=== PATIENT | female | born 1950 | race Caucasian/White ===

== ENCOUNTER 2024-02-02 17:53 | Emergency (ER) | payer MEDICARE, SELFPAY ==
[2024-02-02 18:03] VITALS: BP 141/64; PULSE 73; RESP 14; TEMP 36.6; O2SAT 97; BMI 27.4
--- NOTE | 2024-02-02 18:10 | ECG_ITS ---
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 Measurements Intervals [place] Rate: 65 P: 66 [place]: 155 QRS: 87 QRSD: 85 T: 63 QT: 376 QTc: 393 Interpretive Statements SINUS RHYTHM POSSIBLE LEFT ATRIAL ENLARGEMENT [-0.1mV P-WAVE IN V1/V2] NONSPECIFIC T-WAVE ABNORMALITY No previous ECG available for comparison Electronically Signed On 02-02-2024 21:09:09 CDT by Cheko Araya M.D. [id number]
--- NOTE | 2024-02-02 18:35 | CTR_ITS ---
PROCEDURE INFORMATION: Exam: CT Maxillofacial Without Contrast Exam date and time: 02/02/2024 7:33 PM Age: 73 years old Clinical indication: Injury or trauma; Fall; Blunt trauma (contusions or hematomas); Forehead and nose; Patient HX: Patient fell face first onto floor. Hematoma to frontal and contusion to nasion. C/O BRAVO with dizziness and neck pain. TECHNIQUE: Imaging protocol: Computed tomography of the face without contrast. Radiation optimization: All CT scans at this facility use at least one of these dose optimization techniques: automated exposure control; mA and/or kV adjustment per patient size (includes targeted exams where dose is matched to clinical indication); or iterative reconstruction. COMPARISON: CT head wo con* [id number] 02/02/2024 7:33 PM RADIATION DOSE METRICS: Total DLP (mGy-cm): 577.7 FINDINGS: Orbital cavities: Orbits are normal. Globes are unremarkable. Paranasal sinuses: Left maxillary sinus mucosal thickening without air-fluid levels. Nasal cavity: Nasal turbinectomy surgical changes. Bones: Mild comminution bilateral nasal bones. Mild displacement bilaterally. There is some depression of the anterior superior nasal bones. Soft tissues: Frontal scalp hematoma. CT/CT facial bones wo con* [id number] IMPRESSION: Bilateral nasal bone fracture deformities.
--- NOTE | 2024-02-02 18:35 | CTR_ITS ---
PROCEDURE INFORMATION: Exam: CT Cervical Spine Without Contrast Exam date and time: 02/02/2024 7:33 PM Age: 73 years old Clinical indication: Injury or trauma; Fall; Blunt trauma; Prior surgery; Surgery date: 6+ months; Surgery type: Cervical fusion TECHNIQUE: Imaging protocol: Computed tomography of the cervical spine without contrast. Radiation optimization: All CT scans at this facility use at least one of these dose optimization techniques: automated exposure control; mA and/or kV adjustment per patient size (includes targeted exams where dose is matched to clinical indication); or iterative reconstruction. COMPARISON: CT facial bones wo con* [id number] 02/02/2024 7:33 PM RADIATION DOSE METRICS: Total DLP (mGy-cm): 649.6 FINDINGS: Bones: Negative for acute cervical spine fracture.The cervical spine demonstrates marked degenerative changes at multiple levels. C4-C5 anterolisthesis measures 3.8 mm. C6-C7 anterolisthesis measures 4 mm. Osseous ankylosis of C3-C4. ACDF of C5-C6. Lungs: Mild mosaic attenuation. Soft tissues: Unremarkable. CT/CT cervical spin wo con* [id number] IMPRESSION: Negative for acute cervical spine fracture.
--- NOTE | 2024-02-02 18:35 | CTR_ITS ---
PROCEDURE INFORMATION: Exam: CT Head Without Contrast Exam date and time: 02/02/2024 7:33 PM Age: 73 years old Clinical indication: Injury or trauma; Fall; Blunt trauma (contusions or hematomas); Patient HX: Patient fell face first onto floor. Hematoma to frontal and contusion to nasion. C/O BRAVO with dizziness and neck pain. TECHNIQUE: Imaging protocol: Computed tomography of the head without contrast. Radiation optimization: All CT scans at this facility use at least one of these dose optimization techniques: automated exposure control; mA and/or kV adjustment per patient size (includes targeted exams where dose is matched to clinical indication); or iterative reconstruction. COMPARISON: CT facial bones wo con* [id number] 02/02/2024 7:33 PM RADIATION DOSE METRICS: Total DLP (mGy-cm): 1189.2 FINDINGS: Brain: There is mild cerebral atrophy. There is mild diffuse heterogeneity of the white matter attenuation, consistent with chronic white matter ischemic changes. Negative for intracranial hemorrhage. Negative for mass effect on the brain. Negative for midline shift of brain. Cerebral ventricles: No ventriculomegaly. Paranasal sinuses: Visualized sinuses are unremarkable. No fluid levels. Mastoid air cells: Visualized mastoid air cells are well aerated. Bones: Both nasal bones are mildly-comminuted with mild displacement on the left of unknown chronicity. No acute calvarial fracture. Soft tissues: Frontal scalp hematoma. CT/CT head wo con* [id number] IMPRESSION: 1. Negative for acute intracranial injury. 2. Age indeterminate bilateral nasal bone fracture deformities. Correlate with exam.
[2024-02-02] MEDS: meclizine 25 mg tablet 50 MG PO (18:43)
--- NOTE | 2024-02-02 18:43 | XRR_ITS ---
PROCEDURE INFORMATION: Exam: XR Right Wrist Exam date and time: 02/02/2024 6:54 PM Age: 73 years old Clinical indication: Pain; Wrist; Right; Additional info: Fall, RT wrist pain TECHNIQUE: Imaging protocol: Radiologic exam of the right wrist. Views: 3 or more views. COMPARISON: No relevant prior studies available. FINDINGS: Bones/joints: Bones are moderately demineralized. Alignment is intact. No evidence of acute fracture or dislocation. Moderate scattered degenerative change. Soft tissues: The soft tissues are within normal limits. XR/XR wrist RT min 3V* [id number] IMPRESSION: No evidence of acute fracture or dislocation.
--- NOTE | 2024-02-02 18:43 | XRR_ITS ---
PROCEDURE INFORMATION: Exam: XR Left Wrist Exam date and time: 02/02/2024 7:01 PM Age: 73 years old Clinical indication: Pain; Wrist; Left; Additional info: Fall, lt wrist pain TECHNIQUE: Imaging protocol: Radiologic exam of the left wrist. Views: 3 or more views. COMPARISON: No relevant prior studies available. FINDINGS: Bones/joints: Bones are moderately demineralized. Alignment is intact. No evidence of acute fracture or dislocation. Moderate scattered degenerative change. Soft tissues: The soft tissues are within normal limits. XR/XR wrist LT min 3V* [id number] IMPRESSION: No evidence of acute fracture or dislocation.
--- NOTE | 2024-02-02 18:45 | ED_ITS ---
HPI - Fall 2 General: Chief Complaint: Fall Stated Complaint: Fall--pain in head, hands, wrists Time Seen by Provider: 02/02/24 18:36 Source: patient Mode of arrival: ambulatory Limitations: no limitations History of Present Illness: 73-year-old female states she had a fall today. She does not really remember the events and woke up on the ground with head neck face pain she does have facial and head bruising she has some slight pain in bilateral wrists. She states she has had some vertigo along with feeling unbalanced since coming to [place] from [place] 5 days ago. Denies any previous fall she denies any chest pain or shortness of breath Associated symptoms-after fall: Reports headache(s) and neck pain; Denies abdominal pain or chest pain Review of Systems 2 Const: Denies: fever(s), chills, body aches or change in appetite Eyes: Denies: blurry vision or eye discomfort ENMT: Denies: throat pain or dental pain Card: Denies: chest pain Resp: Denies: dyspnea GI: Denies: abdominal pain, nausea, vomiting or diarrhea Musc: Reports: neck pain; Denies: back pain Skin/Breast: Denies: rash Neuro: Reports: headache(s) and dizziness Physical Exam 2 Const: COMMON NORMALS: no acute distress, patient oriented x3 and healthy appearing HENMT: OTHER: Bruising noted to forehead along with bridge of the nose Eye: COMMON NORMALS: Equal, round and reactive pupils present and EOMs intact bilaterally PUPIL: Yes Equal, round and reactive pupils present OTHER: nystagmus is noted when looking to the right she states she has had nystagmus since the 70s Neck/C-Spine: OTHER: Slight paraspinal tenderness along C-spine Chest: COMMONS NORMALS: normal inspection of the chest and normal palpation of entire chest wall Resp: COMMON NORMALS: normal respiratory effort, No retractions, No use of accessory muscles and clear to auscultation bilaterally AUSCULTATION: clear to auscultation bilaterally Cardio: COMMON NORMALS: regular rate, regular rhythm and No murmurs present (Cardio) RATE: regular rate RHYTHM: regular rhythm GI: COMMON NORMALS: Normal to inspection, nondistended, normoactive bowel sounds present, Soft to palpation, non-tender and no masses PALPATION: Yes Soft to palpation Extremity: COMMON NORMALS: normal to inspection and full ROM Neuro: COMMON NORMALS: patient oriented x3, moves all extremities and no focal motor deficits Psych: COMMON NORMALS: mental status grossly normal, Normal thought process present and cooperative THOUGHT PROCESS: Normal thought process present Skin: COMMON NORMALS: no rashes or lesions noted and no wounds GENERAL SKIN EXAM: no rashes or lesions noted Course 2 Vital Signs: Vital signs: Vital Signs Temperature 97.8 F 02/02/24 18:03 Pulse Rate 67 02/02/24 21:50 Respiratory Rate 16 02/02/24 20:59 Blood Pressure 163/80 02/02/24 21:50 Pulse Oximetry 96 02/02/24 21:50 Oxygen Delivery Me thod Room Air 02/02/24 20:59 MDM - Fall Medical Decision Making Patient presents here with fall she does have a nasal fracture she does have some vertigo but she has had vertigo for quite some time and is not new no signs of posterior stroke it is improved here she is to follow-up with her ENT at home in [place] she leaves tomorrow return if worsening Medical Records I reviewed the patient's medical records. Lab Data I reviewed the patient's lab results. 02/02/24 19:52 02/02/24 19:52 Radiology Impressions Cervical Spine CT 02/02/24 18:35 IMPRESSION: Negative for acute cervical spine fracture. Face CT 02/02/24 18:35 IMPRESSION: Bilateral nasal bone fracture deformities. Head CT 02/02/24 18:35 IMPRESSION: 1. Negative for acute intracranial injury. 2. Age indeterminate bilateral nasal bone fracture deformities. Correlate with exam. Wrist X-Ray 02/02/24 18:43 IMPRESSION: No evidence of acute fracture or dislocation. Laboratory Results WBC 10.84 10^3/uL (3.29-11.43) 02/02/24 19:52 RBC 4.36 10^6/uL (3.85-5.65) 02/02/24 19:52 Hgb 13.70 g/dL (11.27-16.99) 02/02/24 19:52 Hct 41.5 % (36-47) 02/02/24 19:52 MCV 95.2 fl (85-98) 02/02/24 19:52 MCH 31.4 pg (27-33) 02/02/24 19:52 MCHC 33.0 g/dL (30-55) 02/02/24 19:52 RDW 14.1 % (12.1-15.1) 02/02/24 19:52 Plt Count 311 10^3/cmm (157-399) 02/02/24 19:52 MPV 8.9 fL (7.4-10.4) 02/02/24 19:52 Neut % (Auto) 67.8 % 02/02/24 19:52 Lymph % (Auto) 22.8 % 02/02/24 19:52 Dewitt % (Auto) 7.7 % 02/02/24 19:52 Eos % (Auto) 0.6 % 02/02/24 19:52 Baso % (Auto) 0.6 % 02/02/24 19:52 Neut # (Auto) 7.36 10^3/uL (1.8-7.7) 02/02/24 19:52 Lymph # (Auto) 2.5 10^3/uL (0.8-4.8) 02/02/24 19:52 Dewitt # (Auto) 0.8 10^3/uL (0.2-0.9) 02/02/24 19:52 Eos # (Auto) 0.1 10^3/uL (0.0-0.8) 02/02/24 19:52 Baso # (Auto) 0.1 10^3/uL (0.0-0.1) 02/02/24 19:52 Nucleated RBC % (auto) 0 % 02/02/24 19:52 Nucleated RBCs # 0.0 /100WBC 02/02/24 19:52 Sodium 132 mmol/L (136-145) L 02/02/24 19:52 Potassium 4.2 mmol/L (3.5-5.1) 02/02/24 19:52 Chloride 96 mmol/L (98-107) L 02/02/24 19:52 Carbon Dioxide 25 mmol/L (22-29) 02/02/24 19:52 Anion Gap 15.2 (5-19) 02/02/24 19:52 BUN 19 mg/dL (8-23) 02/02/24 19:52 Creatinine 0.8 mg/dL (0.5-0.9) 02/02/24 19:52 GFR Calculation Not Reportable 02/02/24 19:52 Glucose 101 mg/dL (65-115) 02/02/24 19:52 Calculated Osmolality 276 mOsm/kg (285-295) L 02/02/24 19:52 Calcium 9.1 mg/dL (8.5-10.5) 02/02/24 19:52 Total Bilirubin 0.3 mg/dL (0.15-1.2) 02/02/24 19:52 AST 27 U/L (0-32) 02/02/24 19:52 ALT 23 U/L (0-33) 02/02/24 19:52 Alkaline Phosphatase 55 U/L (35-105) 02/02/24 19:52 Troponin T Baseline 9 ng/L (0-10) 02/02/24 19:52 Total Protein 7.3 g/dL (6.6-8.7) 02/02/24 19:52 Albumin 4.6 g/dL (3.5-5.2) 02/02/24 19:52 Globulin 2.7 g/dL (1.3-4.6) 02/02/24 19:52 All radiology interpretation(s) finalized by discharge EKG Data EKG 1: I personally reviewed and interpreted this EKG as follows: EKG interpretation date: 02/02/24 EKG interpretation time: 18:10 Interpretation: nsr hr [address] or t wave abnormalities qrs 85 qtc 388 Discharge Plan Discharge Patient Disposition: Home Clinical Impression: Fall, Vertigo, Closed fracture nasal bone Condition: Stable Discharge Orders: Discharge ED (Routine); Ordered 02/02/24 Ordered By: Jeferson Gilbert Discharge Diet: Advance as tolerated Discharge Activity: Resume usual activity Patient Instructions: Nasal Fracture (ED) Coding Level of Care Code 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
--- NOTE | 2024-02-02 19:43 | ECG_ITS ---
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 Measurements Intervals [place] Rate: 60 P: 63 [place]: 160 QRS: 77 QRSD: 85 T: 46 QT: 408 QTc: 409 Interpretive Statements SINUS RHYTHM POSSIBLE LEFT ATRIAL ENLARGEMENT [-0.1mV P-WAVE IN V1/V2] Compared to ECG 02/02/2024 19:47:18 T-wave abnormality no longer present Possible ischemia no longer present Electronically Signed On 02-02-2024 21:09:50 CDT by Cheko Araya M.D. [id number]
--- NOTE | 2024-02-02 19:47 | ECG_ITS ---
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 Measurements Intervals [place] Rate: 67 P: 59 [place]: 155 QRS: 75 QRSD: 90 T: 46 QT: 390 QTc: 413 Interpretive Statements SINUS RHYTHM POSSIBLE LEFT ATRIAL ENLARGEMENT [-0.1mV P-WAVE IN V1/V2] MODERATE T-WAVE ABNORMALITY, CONSIDER ANTERIOR ISCHEMIA [-0.1+ mV T-WAVE IN V3/V4] Compared to ECG 02/02/2024 18:10:18 Possible ischemia now present T-wave abnormality still present Electronically Signed On 02-02-2024 21:16:21 CDT by Cheko Araya M.D. [id number]
[2024-02-02 19:57] VITALS: BP 165/98; PULSE 67; RESP 18; O2SAT 97
[2024-02-02 20:09] LABS: Basophils # 0.1 10^3/uL (0.0-0.1); Basophils % 0.6 %; Eosinophils # 0.1 10^3/uL (0.0-0.8); Eosinophils % 0.6 %; Hematocrit 41.5 % (36-47); Lymphocytes # 2.5 10^3/uL (0.8-4.8); Lymphocytes % 22.8 %; Mean Corpuscular Hemoglobin 31.4 pg (27-33); Mean Corpuscular Volume 95.2 fl (85-98); Mean Platelet Volume 8.9 fL (7.4-10.4); Monocytes # 0.8 10^3/uL (0.2-0.9); Monocytes % 7.7 %; Neutrophils # 7.36 10^3/uL (1.8-7.7); Neutrophils % 67.8 %; Nucleated Red Blood Cells % 0 %; Platelet Count 311 10^3/cmm (157-399); Red Blood Count 4.36 10^6/uL (3.85-5.65); Red Cell Distribution Width 14.1 % (12.1-15.1); White Blood Count 10.84 10^3/uL (3.29-11.43)
[2024-02-02 20:18] LABS: Troponin(5th) Baseline 9 ng/L (0-10)
[2024-02-02 20:24] LABS: Alanine Aminotransferase 23 U/L (0-33); Albumin Level 4.6 g/dL (3.5-5.2); Alkaline Phosphatase 55 U/L (35-105); Anion Gap 15.2 (5-19); Aspartate Amino Transferase 27 U/L (0-32); Blood Urea Nitrogen 19 mg/dL (8-23); Calcium 9.1 mg/dL (8.5-10.5); Carbon Dioxide 25 mmol/L (22-29); Chloride 96 mmol/L (98-107); Creatinine Clr Calc Pharmacy 62.9775; Globulin 2.7 g/dL (1.3-4.6); Glucose 101 mg/dL (65-115); Osmolality Calculated 276 mOsm/kg (285-295); Potassium 4.2 mmol/L (3.5-5.1); Sodium 132 mmol/L (136-145); Total Bilirubin 0.3 mg/dL (0.15-1.2); Total Protein 7.3 g/dL (6.6-8.7)
[2024-02-02] MEDS: ropinirole 0.25 mg Tablet 0.5 MG PO (20:57)
[2024-02-02 20:59] VITALS: BP 153/84; PULSE 67; RESP 16; O2SAT 99
[2024-02-02] MEDS: sodium chloride 0.9% 1,000 ML 999 ML IV (21:25)
[2024-02-02 21:50] VITALS: BP 163/80; PULSE 67; O2SAT 96
== END 2024-02-02 21:41 | disposition home or self-care (01) ==
PROVIDERS: Emergency Provider Emergency Medicine
DX: R42 Dizziness and giddiness (principal); S02.2XXA Fracture of nasal bones, initial encounter for closed fracture; S00.83XA Contusion of other part of head, initial encounter; W19.XXXA Unspecified fall, initial encounter
CPT/HCPCS: 70450; 70486; 72125; 73110; 80053; 84484; 85025; 93005; 99285; J7030; J8597